=== PATIENT | female | born 1945 | race Caucasian/White ===

== ENCOUNTER 2021-06-09 11:35 | Emergency (ER) | payer MEDICARE ==
[~2021-06-09] VITALS: Ht 170.2 cm; Wt 81.6 kg
[2021-06-09] MEDS ORDERED: DOXYCYCLINE HY100 M4 PO (14:39)
[2021-06-09] MEDS ORDERED: PROAIR HFA INH8.5 GM PO (14:39)
[2021-06-09] MEDS ORDERED: AZITHROMYCIN250 MG PO (14:41)
== END 2021-06-09 15:00 | disposition home or self-care (01) ==
LOC: ER 11:46
DX: R05.9 Cough, unspecified (principal); J18.9 Pneumonia, unspecified organism; E78.5 Hyperlipidemia, unspecified; F41.9 Anxiety disorder, unspecified; Z20.822 Contact with and (suspected) exposure to COVID-19
CPT/HCPCS: 71045; 99283; U0002